=== PATIENT | male | born 2000 | race Caucasian/White ===

== ENCOUNTER → 2022-12-31 | Outpatient (CLI) | payer OTHER ==
[~2022-12-31] MED LIST: CODACEE120 PO; FLINSTONE VITAMINS; NEOPOLHCSU LEFTEAR; PENVK250SU PO
== END ==
LOC: LAB SHORT 08:01 → PLD 08:01
DX: D22.5 Melanocytic nevi of trunk (principal)
CPT/HCPCS: 88305